=== PATIENT | male | born 1980 | race Caucasian/White ===

== ENCOUNTER 2019-06-21 17:01 | Emergency (ER) | payer MEDICAID ==
[~2019-06-21] VITALS: Ht 180.3 cm; Wt 87.9 kg
[2019-06-21 17:05] VITALS: BP 138/64
[2019-06-21] MEDS ORDERED: LORazepam 1MG TABLET ONE (17:26)
--- NOTE | 2019-06-21 17:34 | NUR ---
PT STATES, "IT FEELS THOUGH THERE ARE BUTTERFLIES IN MY STOMACH X 100". PT DENIES CP, SOB, N/V/D.
[2019-06-21] MEDS ORDERED: LORazepam 1MG TABLET PO ONE (18:00)
--- NOTE | 2019-06-21 18:25 | NUR ---
Patient/Caregiver given discharge instructions and they have confirmed that they understand the instructions. Patient ambulatory with steady gait.
== END 2019-06-21 18:27 | disposition home or self-care (01) ==
LOC: ED 17:45
DX: F41.1 Generalized anxiety disorder (principal)
CPT/HCPCS: 99284